=== PATIENT | female | born 1950 | race Caucasian/White ===

== ENCOUNTER 2018-04-23 14:54 | Emergency (ER) | payer OTHER ==
[~2018-04-23] VITALS: Ht 160 cm; Wt 70.3 kg
== END 2018-04-23 19:17 | disposition home or self-care (01) ==
LOC: ER 14:54
DX: M54.5 Low back pain (principal)

== ENCOUNTER 2022-04-24 06:00 | Day surgery (SDC) | payer OTHER | END 2022-04-24 10:20 | disposition home or self-care (01) | LOC: AMB-ENDOS 06:00 | PROVIDERS: ATTEND Colon & Rectal Surgery | DX: D12.4 Benign neoplasm of descending colon (principal); D12.3 Benign neoplasm of transverse colon; Z86.010 Personal history of colon polyps; K64.1 Second degree hemorrhoids ==